=== PATIENT | male | born 1985 | race Caucasian/White ===

== ENCOUNTER → 2016-08-31 | Outpatient (CLI) | payer BC | LOC: MHCPAIN 08:38 | DX: G89.29 Other chronic pain (principal); M47.812 Spondylosis without myelopathy or radiculopathy, cervical region; R51 Headache; M54.81 Occipital neuralgia | CPT/HCPCS: G0463 ==

== ENCOUNTER 2016-11-10 15:45 | Outpatient (RCR) | payer BC | END 2016-11-11 10:34 | LOC: MKS.ESL.PT 15:45 | DX: M47.812 Spondylosis without myelopathy or radiculopathy, cervical region (principal); R51 Headache; M54.81 Occipital neuralgia; G89.29 Other chronic pain ==

== ENCOUNTER → 2016-12-28 | Outpatient (CLI) | payer BC | LOC: MHCPAIN 12:25 | DX: G89.29 Other chronic pain (principal); M50.322 Other cervical disc degeneration at C5-C6 level; R51 Headache; Z87.891 Personal history of nicotine dependence | CPT/HCPCS: G0463 ==

== ENCOUNTER → 2017-01-05 | Outpatient (CLI) | payer BC | LOC: COL.RAD 10:58 | DX: M25.511 Pain in right shoulder (principal) | CPT/HCPCS: J3301 ==

== ENCOUNTER → 2017-02-23 | Outpatient (CLI) | payer BC | LOC: MHCPAIN 09:23 | DX: M50.323 Other cervical disc degeneration at C6-C7 level (principal) ==

== ENCOUNTER → 2017-03-06 | Outpatient (CLI) | payer BC | LOC: MHCPAIN 10:35 | DX: Z01.89 Encounter for other specified special examinations (principal) ==

== ENCOUNTER → 2017-03-06 | Outpatient (CLI) | payer BC | LOC: MHCPAIN 10:41 | DX: G89.29 Other chronic pain (principal); M50.90 Cervical disc disorder, unspecified, unspecified cervical region; R51 Headache; Z87.891 Personal history of nicotine dependence | CPT/HCPCS: G0463 ==

== ENCOUNTER 2020-08-30 02:17 | Emergency (ER) | payer BC ==
[~2020-08-30] VITALS: Ht 172.7 cm; Wt 71.4 kg
[2020-08-30 02:37] LABS: BASO % 0.2 % (0.0-2.0); EOS % 0.7 % (0-4.0); GRAN # 3.9 (1.4-6.5); GRAN % 72.1 % (42.2-75.2); HEMOGLOBIN 14.3 g/dl (13.5-18.0); LYMPH # 1.1 (1.2-3.4); MEAN CELL VOLUME 87 fl (80.0-100.0); MEAN CORPUSCULAR HEMOGLOBIN 29 pg (27.0-31.0); MEAN CORPUSCULAR HGB CONC 33 g/dl (33.0-37.0); MEAN PLATELET VOLUME 9.4 fl (7.4-10.4); MONO # 0.3 (0.1-0.6); MONO % 5.8 % (1.7-9.3); PLATELET COUNT 206 K/mm3 (130-400); RED BLOOD COUNT 4.96 M/mm3 (4.20-5.60); REDCELL DISTRIBUTION WIDTH-CV 12.1 % (11.5-14.5)
[2020-08-30 02:45] LABS: PROTHROMBIN TIME 11.6 SECONDS (9.7-12.8)
[2020-08-30 02:48] LABS: PARTIAL THROMBOPLASTIN TIME 28.4 SECONDS (26.0-37.0)
[2020-08-30 02:50] LABS: ALANINE AMINOTRANSFERASE 14 U/L (4-49); ALBUMIN 3.7 gm/dL (3.5-5.0); ALCOHOL(ethanol),MEDICAL 164 mg/dL; ALKALINE PHOSPHATASE 78 U/L (50-136); ANION GAP 9 mmol/L (7-16); AST,SGOT 24 U/L (15-37); BILIRUBIN,TOTAL 0.3 mg/dL (0.0-1.0); BLOOD UREA NITROGEN 17 mg/dL (9-20); CALCIUM 8.5 mg/dL (8.4-10.2); CARBON DIOXIDE 23 mmol/L (22-30); CHLORIDE 109 mmol/L (98-107); CREATININE, serum 1.02 (0.66-1.25); GLUCOSE 106 mg/dL (74-106); POTASSIUM 3.4 mmol/L (3.4-5.0); SODIUM 140 mmol/L (137-145); TOTAL PROTEIN 6.1 gm/dL (6.4-8.2)
[2020-08-30 02:52] LABS: MUCOUS Present /lpf; PH 6 (5-8); SQUAMOUS EPITHELIAL None Seen /hpf; URINE APPEARANCE Clear; URINE BACTERIA None Seen /hpf; URINE BILIRUBIN Negative (NEGATIVE); URINE BLOOD Negative (NEGATIVE); URINE COLOR Straw; URINE GLUCOSE Negative (NEGATIVE); URINE KETONE Negative (NEGATIVE); URINE LEUKOCYTE ESTERASE Negative (NEGATIVE); URINE NITRATE Negative (NEGATIVE); URINE PROTEIN(semi-quant) Negative (NEGATIVE); URINE RBC 0-2 /hpf; URINE UROBILINOGEN Negative (NEGATIVE); URINE WBC 0-2 /hpf
[2020-08-30 03:02] LABS: TRICYCLIC ANTIDEPRESS URINE NEGATIVE
[2020-08-30 03:08] LABS: TROPONIN-I < 0.012 ng/mL (0.000-0.035)
[2020-08-30 03:10] LABS: COLLECTION METHOD CLEAN CATCH
[2020-08-30] MEDS ORDERED: ANTIVERT 25MG25 MG PO (04:52)
[2020-08-30 05:26] VITALS: BP 128/88; PULSE 78; TEMP 98.6
== END 2020-08-30 05:55 | disposition home or self-care (01) ==
LOC: COL.ER 02:17
PROVIDERS: Emergency Medicine
DX: I10 Essential (primary) hypertension (principal)
CPT/HCPCS: J3360